=== PATIENT | male | born 1930 | race Caucasian/White ===

== ENCOUNTER 2017-09-14 10:19 | Emergency (ER) | payer BC, OTHER ==
[~2017-09-14] VITALS: Ht 170.2 cm; Wt 77.0 kg
[~2017-09-14 10:19] MED LIST: ASPEC325 PO; ATOR-26 PO; CLOP1TAB15 PO; DLN100 PO; METO50TA7 PO
[2017-09-14 10:30] VITALS: TEMP 36.5; Ht 170.2 cm; Wt 77.0 kg
[2017-09-14 10:37] VITALS: O2SAT 95
[2017-09-14] MEDS ORDERED: ASPEC325 PO (10:53)
[2017-09-14] MEDS ORDERED: DLN/100 PO (10:54)
[2017-09-14] MEDS ORDERED: METO25TA3 PO (10:54)
[2017-09-14] MEDS ORDERED: SYN75 PO (10:54)
[2017-09-14 11:20] LABS: BASO % 0.5 %; BASO ABS # 0.04 K/uL (0-0.2); COMPLETE YES; EOS % 3.1 %; IG% 0.6 %; LYMPH % 25.3 %; LYMPH ABS # 1.97 K/uL (1.2-3.4); MEAN CELL VOLUME 90.9 fL (80-100); MEAN CORPUSCULAR HEMOGLOBIN 31.6 pg (25-34); MEAN CORPUSCULAR HGB CONC 34.8 g/dl (32-36); MEAN PLATELET VOLUME 9.5 fL (7.4-10.4); MONO % 10.5 %; PLATELET COUNT 260 K/uL (130-400); RED BLOOD COUNT 5.06 M/uL (4.7-6.1); WHITE BLOOD COUNT 7.78 K/uL (4.8-10.8)
[2017-09-14 11:28] LABS: BUN/CREATININE RATIO 13.3 (10-20); CALCIUM 8.9 mg/dl (8.5-10.1); CREATININE 0.91 mg/dl (0.60-1.40); POTASSIUM 4.1 mmol/L (3.5-5.1)
--- NOTE | 2017-09-14 11:36 | DIAGNOSTIC IMAGING REPORT ---
CHEST ONE VIEW PORTABLE CLINICAL HISTORY: SEIZURE dyspnea COMPARISON STUDY: No previous studies for comparison. FINDINGS: Minimal infiltrative change medial left base. Lungs otherwise appear clear. Diaphragms are smooth. IMPRESSION: Minimal infiltrative change medial left base. The above report was generated using voice recognition software. It may contain grammatical, syntax or spelling errors. Electronically signed by: Jose Topete M.D. 09/14/2017 11:34 AM Dictated Date/Time: 09/14/2017 11:34 AM
--- NOTE | 2017-09-14 11:37 | DIAGNOSTIC IMAGING REPORT ---
CT SCAN OF THE BRAIN WITHOUT IV CONTRAST CLINICAL HISTORY: Seizure. COMPARISON STUDY: CT of the brain dated 02/14/2008. TECHNIQUE: Unenhanced axial CT scan of the brain is performed from the vertex to the skull base. CT DOSE: 1228.53 mGy.cm FINDINGS: Brain parenchyma: There are age-related involutional changes noting moderate patchy subcortical and periventricular microangiopathic change. There is no hemorrhage, mass effect, or evidence of acute territorial ischemia by CT criteria. Gleason-white matter is preserved. No extra-axial fluid collection is seen. Ventricles, sulci, cisterns: Prominent secondary to involutional change. Intracranial vasculature: There is atherosclerotic calcification of the cavernous carotid and vertebral arteries. Calvarium: The skeletal structures are osteopenic. There is no depressed calvarial fracture. A small lipoma is noted in the left occipital scalp on image #9. Sinuses and mastoids: The visualized paranasal sinuses are clear. The mastoid air cells are well pneumatized. Orbits: The bony orbits are grossly intact. There is a right ocular lens implant. IMPRESSION: There is no hemorrhage, mass effect, or evidence of acute territorial ischemia by CT criteria. Electronically signed by: Oleg Kearney M.D. 09/14/2017 11:35 AM Dictated Date/Time: 09/14/2017 11:33 AM
[2017-09-14] MEDS ORDERED: PHENYTOIN 50 MG CHEW PO ONE (13:15)
--- NOTE | 2017-09-14 13:16 | EMERGENCY ROOM VISIT NOTE ---
History Report prepared by Fuad: Rodrigue Johnson Under the Supervision of: Dr. Frank Das D.O. First contact with patient: 10:49 Chief Complaint: SEIZURE Stated Complaint: SEIZURE Nursing Triage Summary: pt to the ED from home via EMS with c/o hearing and noise then she found him foaming at the mouth and skaking for 1-2 min pt has a hx of sz with 1 preiously. pt has no complaints of pain but is unable to answer any orientation questions BSG per EMS was 119 upon arriving to the ED pt started to vomitt on himself and then swallowed some of it History of Present Illness The patient is an 86 year old male who presents to the Emergency Room via EMS with a seizure-like episode that occurred prior to arrival this morning. Per the patient's , she started hearing yelling in the house, and found the patient shaking on the couch, moving all around, and foaming at the mouth for a few minutes. The patient was also noted to be unresponsive during the episode, but did not fall off the couch. He then settled down, but he did not really come around until EMS got there, and even when EMS got there, the patient was still not opening his eyes. Per EMS, the patient was vomiting when they got to the scene. Per the patient's family, the patient has been fine recently, and was okay this morning before the episode. Any recent weakness or illnesses were denied. The patient states that he is feeling okay, and denies any bites to his tongue. Per the patient's family, the patient had one seizure-like episode many years ago, but the patient has not had anything this bad or prolonged in the past. The patient does not see a neurologist. He does not wear oxygen at home. Any incontinence of the patient's urine or stool were denied. Source of History: patient, family, EMS Onset: Prior to arrival this morning Position: other (global - seizure-like) Symptom Intensity: never had anything this bad before Quality: other (shaking and foaming at mouth) Timing: other (episode) Associated Symptoms: + vomiting, No urinary symptoms, No weakness (any recent ) Note: Associated symptoms: Unresponsive for few minutes. Any recent illnesses denied or tongue bites. Incontinence of stool denied. Review of Systems See HPI for pertinent positives & negatives. A total of 10 systems reviewed and were otherwise negative. Past Medical & Surgical Medical Problems: (1) Seizure (2) Seizure disorder Family History Family history omitted secondary to patient's advanced age. Social History Smoking Status: Never Smoker Marital Status: Housing Status: lives with family Occupation Status: retired Current/Historical Medications Scheduled Aspirin (Aspirin), 325 MG PO DAILY Levothyroxine Sodium (Synthroid), 75 MCG PO DAILY Loratadine (Claritin), 10 MG PO DAILY Metoprolol Succ (Toprol Xl) (Toprol-Xl), 25 MG PO BID Phenytoin Sodium (Dilantin), 400 MG PO DAILY Allergies Coded Allergies: Statins (Unverified Allergy, Severe, OTHER, 09/14/17) SEVERE MUSCLE WEAKNESS LOWER EXTREMITIES Physical Exam Vital Signs Date Time Temp Pulse Resp B/P (MAP) Pulse Ox O2 Delivery O2 Flow Rate FiO2 09/14/17 13:29 83 20 149/82 95 Room Air 09/14/17 12:22 68 18 173/84 99 Nasal Cannula 2.0 09/14/17 11:14 72 16 153/87 93 Nasal Cannula 2.0 09/14/17 10:37 95 Nasal Cannula 2.0 09/14/17 10:30 36.5 93 16 183/98 90 Room Air 09/14/17 10:30 90 Physical Exam VITAL SIGNS: were reviewed as above. GENERAL:Non-toxic in appearance. Generalized weakness. No incontinence. SKIN: Warm dry and pink. HEAD: Normocephalic and atraumatic. OROPHARYNX: Is clear and moist. Did not bite tongue. NECK: Supple without lymphadenopathy or meningismus. LUNGS: clear. HEART: Regular rate and rhythm. ABDOMEN: Soft and nontender. EXTREMITIES: Warm and well perfused. NEUROLOGICALLY: Awake alert and oriented without focal deficit. Cranial nerves 2 -12 are intact. There is no pronator drift. Cerebellar testing is within normal limits. There is no nystagmus. There is no facial droop. Speech is clear. Vision is grossly normal. MUSCULOSKELETAL: Good muscle tone. No evidence of trauma. Medical Decision & Procedures ER Provider Diagnostic Interpretation: Radiology results as stated below per my review and radiologist interpretation: CT SCAN OF THE BRAIN WITHOUT IV CONTRAST CLINICAL HISTORY: Seizure. COMPARISON STUDY: CT of the brain dated 02/14/2008. TECHNIQUE: Unenhanced axial CT scan of the brain is performed from the vertex to the skull base. CT DOSE: 1228.53 mGy.cm FINDINGS: Brain parenchyma: There are age-related involutional changes noting moderate patchy subcortical and periventricular microangiopathic change. There is no hemorrhage, mass effect, or evidence of acute territorial ischemia by CT criteria. Gleason-white matter is preserved. No extra-axial fluid collection is seen. Ventricles, sulci, cisterns: Prominent secondary to involutional change. Intracranial vasculature: There is atherosclerotic calcification of the cavernous carotid and vertebral arteries. Calvarium: The skeletal structures are osteopenic. There is no depressed calvarial fracture. A small lipoma is noted in the left occipital scalp on image #9. Sinuses and mastoids: The visualized paranasal sinuses are clear. The mastoid air cells are well pneumatized. Orbits: The bony orbits are grossly intact. There is a right ocular lens implant. IMPRESSION: There is no hemorrhage, mass effect, or evidence of acute territorial ischemia by CT criteria. Electronically signed by: Oleg Kearney M.D. 09/14/2017 11:35 AM Dictated Date/Time: 09/14/2017 11:33 AM CHEST ONE VIEW PORTABLE CLINICAL HISTORY: SEIZURE dyspnea COMPARISON STUDY: No previous studies for comparison. FINDINGS: Minimal infiltrative change medial left base. Lungs otherwise appear clear. Diaphragms are smooth. IMPRESSION: Minimal infiltrative change medial left base. The above report was generated using voice recognition software. It may contain grammatical, syntax or spelling errors. Electronically signed by: Jose Topete M.D. 09/14/2017 11:34 AM Dictated Date/Time: 09/14/2017 11:34 AM Laboratory Results 09/14/17 10:20 Red Blood Count 5.06, Mean Corpuscular Volume 90.9, Mean Corpuscular Hemoglobin 31.6, Mean Corpuscular Hemoglobin Concent 34.8, Mean Platelet Volume 9.5, Neutrophils (%) (Auto) 60.0, Lymphocytes (%) (Auto) 25.3, Monocytes (%) (Auto) 10.5, Eosinophils (%) (Auto) 3.1, Basophils (%) (Auto) 0.5, Neutrophils # (Auto ) 4.66, Lymphocytes # (Auto) 1.97, Monocytes # (Auto) 0.82, Eosinophils # (Auto ) 0.24, Basophils # (Auto) 0.04 09/14/17 10:20 Test 09/14/17 10:20 White Blood Count 7.78 K/uL (4.8-10.8) Red Blood Count 5.06 M/uL (4.7-6.1) Hemoglobin 16.0 g/dL (14.0-18.0) Hematocrit 46.0 % (42-52) Mean Corpuscular Volume 90.9 fL (80-100) Mean Corpuscular Hemoglobin 31.6 pg (25-34) Mean Corpuscular Hemoglobin Concent 34.8 g/dl (32-36) Platelet Count 260 K/uL (130-400) Mean Platelet Volume 9.5 fL (7.4-10.4) Neutrophils (%) (Auto) 60.0 % Lymphocytes (%) (Auto) 25.3 % Monocytes (%) (Auto) 10.5 % Eosinophils (%) (Auto) 3.1 % Basophils (%) (Auto) 0.5 % Neutrophils # (Auto) 4.66 K/uL (1.4-6.5) Lymphocytes # (Auto) 1.97 K/uL (1.2-3.4) Monocytes # (Auto) 0.82 K/uL (0.11-0.59) Eosinophils # (Auto) 0.24 K/uL (0-0.5) Basophils # (Auto) 0.04 K/uL (0-0.2) RDW Standard Deviation 44.2 fL (36.4-46.3) RDW Coefficient of Variation 13.5 % (11.5-14.5) Immature Granulocyte % (Auto) 0.6 % Immature Granulocyte # (Auto) 0.05 K/uL (0.00-0.02) Anion Gap 17.0 mmol/L (3-11) Est Creatinine Clear Calc Drug Dose 53.5 ml/min Estimated GFR () 87.5 Estimated GFR (Non- 75.5 BUN/Creatinine Ratio 13.3 (10-20) Calcium Level 8.9 mg/dl (8.5-10.1) Phenytoin (Dilantin) Level 7.0 mcg/mL (10-20) Laboratory results as stated above per my review. Medications Administered Medications (Trade) Dose Ordered Sig/Yoko Route Start Time Stop Time Status Last Admin Dose Admin Phenytoin (Dilantin Chew) 200 mg ONE ONCE PO 09/14/17 13:15 09/14/17 13:16 DC 09/14/17 13:22 200 MG ECG Indication: other (seizure) Rate (beats per minute): 67 Rhythm: normal sinus Findings: no ectopy, other (no acute injury) ED Course 1052: Previous medical records were reviewed. The patient was evaluated in room C6. A complete history and physical examination was performed. 1315: Ordered Dilantin Chew 200 mg PO. 1320: On reevaluation, the patient is resting comfortably. I discussed the results and findings with the patient and his family. They verbalized agreement of the treatment plan. The patient was discharged home. Medical Decision Differential diagnosis: Etiologies such as infection, hypoglycemia, electrolyte abnormalities, cardiac sources, intracerebral event, trauma, toxicologic, neurologic, as well as others were entertained. This is an 86-year-old male who present to the ED after a seizure. The patient has a history of seizures. He had one seizure in the past in January 2008. The patient has been on Dilantin since that time. The patient has not had a seizure since. The states that she heard some noise and walked over to the patient was sitting on a couch she was having a tonic-clonic seizure. It lasted for a couple of minutes and then subsided. The patient became more responsive once he arrived here by EMS. Prehospital watch her was okay. The patient denies any complaints. He did not bite his tongue or have incontinence. His physical exam was unremarkable. His initial blood pressure was elevated. EKG shows a normal sinus rhythm. Chest x-ray reveals minimal left base infiltrate. CT scan of the brain did not show acute process. CBC was normal and PRP was unremarkable. Dilantin level is 7.0. This is low as normal is 10-20. The patient was loaded orally with 200 mg of oral Dilantin. He was told the results of his tests he is felt to be stable for discharge. He was advised to contact his doctor today for follow-up tomorrow and for recheck of his Dilantin level and or adjustments by his doctor. The patient was awake, alert and oriented at the time of disposition and without complaints. Medication Reconcilliation Current Medication List: was personally reviewed by me Blood Pressure Screening Patient's blood pressure: Elevated blood pressure Blood pressure disposition: Referred to PCP Impression Primary Impression: Seizure disorder Scribe Attestation The scribe's documentation has been prepared under my direction and personally reviewed by me in its entirety. I confirm that the note above accurately reflects all work, treatment, procedures, and medical decision making performed by me. Departure Information Dispostion Home / Self-Care Patient Instructions My [facility] [employer] Additional Instructions Do not drive. Your Dilantin level today was low. It was 7. Normal is 10-20. Contact your doctor today for follow-up or recommendations for adjustments. Have your blood pressure rechecked by your doctor. Return for any concerns or worsening.
[2017-09-14 13:29] VITALS: BP 149/82; PULSE 83; O2SAT 95
[2017-09-14] MEDS ORDERED: CLR10 PO (17:05)
== END 2017-09-14 13:40 | disposition home or self-care (01) ==
LOC: EDBD 10:19 → C.EDC 11:55
DX: R56.9 Unspecified convulsions (principal); Z79.82 Long term (current) use of aspirin